=== PATIENT | female | born 1965 | race Caucasian/White ===

== ENCOUNTER 2017-09-16 06:29 | Day surgery (SDC) | payer BC, MEDICAID ==
[~2017-09-16] VITALS: Ht 152.4 cm; Wt 63.5 kg
[2017-09-16] MEDS ORDERED: ORE25 PO (08:07)
[2017-09-16] MEDS ORDERED: SIMV10TA1 PO (08:07)
[2017-09-16] MEDS ORDERED: LISI-420 PO (08:07)
[2017-09-16] MEDS ORDERED: LIDOCAINE 2% 100 MG/5 ML UJET TP ONE (09:23)
== END 2017-09-16 10:55 | disposition home or self-care (01) ==
LOC: MDS 06:29 → MMU 06:30 → MDS 10:55
PROVIDERS: ATTEND Internal Medicine Gastroenterology
DX: Z12.11 Encounter for screening for malignant neoplasm of colon (principal); K63.89 Other specified diseases of intestine; I10 Essential (primary) hypertension; E11.9 Type 2 diabetes mellitus without complications; E66.9 Obesity, unspecified; Z68.31 Body mass index [BMI] 31.0-31.9, adult; E78.5 Hyperlipidemia, unspecified; Z79.899 Other long term (current) drug therapy
CPT/HCPCS: 81025